=== PATIENT | female | born 1950 | race Caucasian/White ===

== ENCOUNTER → 2016-10-12 | Outpatient (CLI) | payer MEDICARE, OTHER ==
[~2016-10-12] VITALS: Ht 160 cm; Wt 77.6 kg
[~2016-10-12] MED LIST: LR 1,000 ML IV SCH; PROPOFOL 200 MG/20 ML VIAL As Ordered ONE
--- NOTE | 2016-10-12 08:14 | ROOR ---
Patient Name: Mary Ann Gastelum Procedure Date: 10/12/2016 7:29 AM Date of : 1950 Age: 65 Room: [facility] Gender: Female Note Status: Finalized Procedure: Colonoscopy Indications: High risk colon cancer surveillance: Personal history of multiple (3 or more) adenomas, Last colonoscopy: September 2012 Providers: Montez Guo MD Referring MD: TYRELL SORIA MD Requesting Provider: Medicines: Monitored Anesthesia Care Complications: No immediate complications. Procedure: Pre-Anesthesia Assessment: - Prior to the procedure, a History and Physical was performed, and patient medications and allergies were reviewed. The patient is competent. The risks and benefits of the procedure and the sedation options and risks were discussed with the patient. All questions were answered and informed consent was obtained. Patient identification and proposed procedure were verified by the physician, the nurse and the anesthesiologist in the procedure room. Mental Status Examination: alert and oriented. Airway Examination: normal oropharyngeal airway and neck mobility. CV Examination: regular rate and rhythm. Prophylactic Antibiotics: The patient does not require prophylactic antibiotics. Prior Anticoagulants: The patient has taken no previous anticoagulant or antiplatelet agents. ASA Grade Assessment: II - A patient with mild systemic disease. After reviewing the risks and benefits, the patient was deemed in satisfactory condition to undergo the procedure. The anesthesia plan was to use monitored anesthesia care (MAC). Immediately prior to administration of medications, the patient was re-assessed for adequacy to receive sedatives. The heart rate, respiratory rate, oxygen saturations, blood pressure, adequacy of pulmonary ventilation, and response to care were monitored throughout the procedure. The physical status of the patient was re-assessed after the procedure. The Colonoscope was introduced through the anus and advanced to the cecum, identified by appendiceal orifice and ileocecal valve. The colonoscopy was performed without difficulty. The patient tolerated the procedure well. The quality of the bowel preparation was excellent. Findings: The perianal and digital rectal examinations were normal. Multiple medium-mouthed diverticula were found in the sigmoid colon. A 5 mm polyp was found at 20 cm proximal to the anus. The polyp was sessile. The polyp was removed with a piecemeal technique using a hot biopsy forceps. Resection and retrieval were complete. Impression: - Diverticulosis in the sigmoid colon. - One 5 mm polyp at 20 cm proximal to the anus, removed piecemeal using a hot biopsy forceps. Resected and retrieved. Recommendation: - Await pathology results. - Telephone endoscopist for pathology results in 10 days. Montez Guo MD 10/12/2016 8:14:25 AM Number of Addenda: 0 Note Initiated On: 10/12/2016 7:29 AM Estimated Blood Loss: Estimated blood loss: none.
[2016-10-12 08:30] VITALS: BP 148/98
== END ==
LOC: M OPP 06:39
PROVIDERS: ATTEND Surgery
DX: Z12.11 Encounter for screening for malignant neoplasm of colon (principal); D12.5 Benign neoplasm of sigmoid colon; K57.30 Diverticulosis of large intestine without perforation or abscess without bleeding; Z86.010 Personal history of colon polyps; E78.5 Hyperlipidemia, unspecified; M81.0 Age-related osteoporosis without current pathological fracture; F41.9 Anxiety disorder, unspecified; Z78.0 Asymptomatic menopausal state

== ENCOUNTER → 2022-06-13 | Outpatient (CLI) | payer MEDICARE, OTHER ==
[~2022-06-13] MED LIST changes: +ERGO500029 PO; +LISI10TA22 PO; -LR 1,000 ML IV SCH; -PROPOFOL 200 MG/20 ML VIAL As Ordered ONE; +SIMV20TA22 PO
== END ==
LOC: M LABSMTC 12:01
PROVIDERS: ATTEND Anesthesiology
DX: Z01.812 Encounter for preprocedural laboratory examination (principal); Z20.822 Contact with and (suspected) exposure to COVID-19

== ENCOUNTER 2022-06-17 09:18 | Day surgery (SDC) | payer MEDICARE, OTHER ==
[~2022-06-17] VITALS: Ht 160 cm; Wt 80.7 kg
[~2022-06-17 09:18] MED LIST changes: +NS 1,000 ML IV ONE
[2022-06-17] MEDS ORDERED: LIDOCAINE 2% 100MG/5ML SDV (FOR ANES.) As Ordered ONE (10:14)
[2022-06-17] MEDS ORDERED: propofoL 200 MG/20 ML VIAL As Ordered ONE ×2 (10:14→10:19)
[2022-06-17 10:47] VITALS: BP 135/65
[2022-06-17] MEDS ORDERED: SIMETHICONE 40MG/0.6ML DROPS 30ML As Ordered ONE (13:18)
== END 2022-06-17 11:29 | disposition home or self-care (01) ==
LOC: M OPP 09:18
PROVIDERS: ATTEND Surgery
DX: Z12.11 Encounter for screening for malignant neoplasm of colon (principal); Z86.010 Personal history of colon polyps; K57.30 Diverticulosis of large intestine without perforation or abscess without bleeding; Z79.02 Long term (current) use of antithrombotics/antiplatelets; Z79.899 Other long term (current) drug therapy; Z91.011 Allergy to milk products; Z91.048 Other nonmedicinal substance allergy status; M17.0 Bilateral primary osteoarthritis of knee; F41.9 Anxiety disorder, unspecified; E78.5 Hyperlipidemia, unspecified